=== PATIENT | male | born 1995 | race Two or more races ===

== ENCOUNTER 2018-02-15 11:55 | Emergency (ER) | payer SELFPAY ==
[2018-02-15 12:05] VITALS: BP 127/80
--- NOTE | 2018-02-15 13:54 | ER Document Report ---
ED General - General Mode of Arrival: Ambulatory Information source: Patient - General Chief Complaint: Chest Pain Stated Complaint: CHEST PAIN Time Seen by Provider: 02/15/18 13:47 Notes: Patient is a 22-year-old male who presents to emergency department today with complaints of left-sided shoulder pain that radiates around to his left shoulder blade area. Patient states his pain is exacerbated with certain movements, breathing, and coughing. Patient states he has tried a heating pad and Tylenol for this which have not helped relieve his symptoms. Patient is a smoker. Patient denies fevers, nausea, vomiting, diarrhea, numbness or tingling , nasal discharge, or earaches. (YNO GOYAL) - Related Data Allergies/Adverse Reactions: No Known Allergies Allergy (Unverified 02/15/18 11:59) Past Medical History - General Information source: Patient - Social History Smoking Status: Current Every Day Smoker Cigarette use (# per day): Yes Chew tobacco use (# tins/day): No Frequency of alcohol use: Rare Drug Abuse: None Lives with: Family Family History: Reviewed & Not Pertinent Patient has suicidal ideation: No Patient has homicidal ideation: No Renal/ Medical History: Denies: Hx Peritoneal Dialysis Review of Systems - Review of Systems Constitutional: denies: Fever EENT: denies: Ear pain Cardiovascular: No symptoms reported Respiratory: See HPI, Hurts to breathe Gastrointestinal: denies: Diarrhea, Nausea, Vomiting Genitourinary: No symptoms reported Male Genitourinary: No symptoms reported Musculoskeletal: No symptoms reported Skin: No symptoms reported Hematologic/Lymphatic: No symptoms reported Neurological/Psychological: denies: Numbness, Tingling -: Yes All other systems reviewed and negative Physical Exam - Vital signs Vitals: Temp Pulse Resp BP Pulse Ox 98.5 F 81 16 127/80 H 100 02/15/18 12:03 02/15/18 12:03 02/15/18 12:03 02/15/18 12:03 02/15/18 12:03 - Notes Notes: PHYSICAL EXAM GENERAL: Alert, interacts well. No acute distress. HEAD: Normocephalic, atraumatic. EYES: Pupils equal, round, and reactive to light. Extraocular movements intact. ENT: Oral mucosa moist, tongue midline. NECK: Full range of motion. Supple. Trachea midline. CHEST: No reproducible tenderness with palpation. LUNGS: Clear to auscultation bilaterally, no wheezes, rales, or rhonchi. No respiratory distress. HEART: Regular rate and rhythm. No murmurs, gallops, or rubs. ABDOMEN: Soft, non-tender. Non-distended. Bowel sounds present in all 4 quadrants. No guarding, rigidity, or rebound. EXTREMITIES: Moves all 4 extremities spontaneously. No edema, radial and dorsalis pedis pulses 2/4 bilaterally. No cyanosis. NEUROLOGICAL: Alert and oriented x3. Normal speech. PSYCH: Normal affect, normal mood. SKIN: Warm, dry, normal turgor. No rashes or lesions noted. (YON GOYAL) Course - Re-evaluation Re-evalutation: 02/15/18 15:06 EKG nonischemic, no evidence of pericarditis, physical exam does not show any shingles, chest x-ray does not show pneumonia or pneumothorax. Suspect musculoskeletal origin, suspicious for muscle spasm, discharged home with muscle relaxers. 02/15/18 19:29 Patient did not return when called in the lobby for his discharge instructions, did not answer his phone when we called him with discharge instructions. Discharge instructions waiting for him at the desk. (KASH GILMORE) - Vital Signs Vital signs: Temp Pulse Resp BP Pulse Ox 98.5 F 81 16 127/80 H 100 02/15/18 12:03 02/15/18 12:03 02/15/18 12:03 02/15/18 12:03 02/15/18 12:03 - EKG Interpretation by Me Additional EKG results interpreted by me: 02/15/18 19:30 EKG shows sinus rhythm at a rate of 71, normal axis, normal intervals, no ST segment elevations or depressions, no T-wave inversions per my interpretation. ( KASH GILMORE) Discharge - Discharge Clinical Impression: Left sided chest pain Condition: Stable Disposition: ELOPED Additional Instructions: Chest Pain of Unclear Cause The exact cause of your chest pain isn't clear. Fortunately, there is no evidence of a dangerous medical condition. Further testing may be required to find the source of the pain. Most often, we find that this pain is coming from the chest wall -- the muscles or rib joints in the chest. But chest pain can come from the lung and lung lining, the esophagus, the heart valves or heart lining, and even the stomach or gallbladder. Rest. Eat lightly until the pain is gone. We may prescribe medicine for pain and inflammation. You should call the physician immediately if the pain radiates to the shoulder, jaw or arms; if you start to run a fever or develop a cough; or if you develop shortness of breath, or other new or alarming symptoms. Prescriptions: Methocarbamol [Robaxin 750 mg Tablet] 750 mg PO ASDIR PRN #40 tablet PRN Reason: Scribe Attestation: 02/15/18 19:29 I personally performed the services described in the documentation, reviewed and edited the documentation which was dictated to the scribe in my presence, and it accurately records my words and actions. (KASH GILMORE) Negrito Documentation - Scribe Written by Negrito:: Negrito Vizcarra, 02/15/2018 [id number] acting as scribe for :: Von
--- NOTE | 2018-02-15 14:13 | RADIOLOGY REPORT (SQ) ---
EXAM DESCRIPTION: CHEST 2 VIEWS COMPLETED DATE/TIME: 02/15/2018 2:03 pm REASON FOR STUDY: left sided pleuritic chest pain COMPARISON: None. EXAM PARAMETERS: NUMBER OF VIEWS: two views TECHNIQUE: Digital Frontal and Lateral radiographic views of the chest acquired. RADIATION DOSE: NA LIMITATIONS: none FINDINGS: LUNGS AND PLEURA: No opacities, masses or pneumothorax. No pleural effusion. MEDIASTINUM AND HILAR STRUCTURES: No masses or contour abnormalities. HEART AND VASCULAR STRUCTURES: Heart normal size. No evidence for failure. BONES: No acute findings. HARDWARE: None in the chest. OTHER: No other significant finding. IMPRESSION: NO ACUTE RADIOGRAPHIC FINDING IN THE CHEST. TECHNICAL DOCUMENTATION: JOB ID: [id number] [employer]- All Rights Reserved Reading location - IP/workstation name: [email or web address]
--- NOTE | 2018-02-15 15:39 | EKG REPORT ---
SEVERITY:- NORMAL ECG - SINUS RHYTHM : Confirmed by: Abbie Perez MD 15-Feb-2018 15:38:01
== END 2018-02-15 15:37 | disposition left against medical advice (07) ==
LOC: ER 11:55
DX: R07.1 Chest pain on breathing (principal); M25.512 Pain in left shoulder; F17.210 Nicotine dependence, cigarettes, uncomplicated
CPT/HCPCS: 71046; 93005; 93010; 99281